=== PATIENT | female | born 1970 | race Caucasian/White ===

== ENCOUNTER → 2017-03-02 | Outpatient (CLI) | payer OTHER ==
--- NOTE | ~2017-03-02 | CT4 ---
[facility] A Service of [facility] & [facility] RADIOLOGY TEXT RESULTS PATIENT: BENJAMIN GONG LOCATION: [facility]AT : 66 UNIT #: [id number] AGE: [address]: Christiana Finley APRN SEX: F ORDER DR: [id number] [facility] [address] [place], [place] [address] [id number] O MR#: [id number] Acc #: [id number] NAME: BENJAMIN GONG : 1970 SEX: F STUDY DATE/TIME: 03/02/2017 14:57 UNIT: [facility] ROOM: STUDY DESCRIPTION: CT Abd and Pelv Wo Cont Attending Physician: Christiana Finley A.P.R.N. Referring Physician: Christiana Finley A.P.R.N. Ordering Physician: Christiana Finley A.P.R.N. Primary Care Physician: Christiana Finley A.P.R.N. MEDICAL IMAGING REPORT This report is preliminary unless electronic signature is present EXAM CT of the abdomen and pelvis without contrast. INDICATION Abdominal pain and left-sided back pain today. Hematuria for [address] of the abdomen and pelvis was performed without contrast. Coronal and sagittal reformatted images are obtained. This CT exam was performed with one or more of the following radiation dose reduction techniques: automatic exposure control, adjustment of mA and/or kV according to patient size, and iterative reconstruction. COMPARISON Compared with 04/16/2015. FINDINGS The lung bases are clear. The liver is unremarkable. The gallbladder is unremarkable. The spleen is unremarkable. Punctate nonobstructing stones in the lower pole of the left kidney. Punctate nonobstructing stone in the lower pole of the right kidney. Small cyst in the right kidney. No hydronephrosis. No inflammatory stranding around the kidneys. The adrenal glands are unremarkable. Pancreas is unremarkable. PELVIS: The urinary bladder is unremarkable. Colon is unremarkable. Normal appendix. The bone windows are unremarkable. IMPRESSION There are punctate nonobstructing stones in both kidneys. No evidence for hydronephrosis or obstruction. [facility]. [facility] A Service of [facility] & [facility] RADIOLOGY TEXT RESULTS PATIENT: BENJAMIN GONG [facility] #: [id number] : 66 UNIT #: [id number] AGE: [address]: Christiana Finley APRN SEX: F ORDER DR: Dictated by... Micah Bonilla M.D. THIS IS AN ELECTRONICALLY VERIFIED REPORT Micah Bonilla M.D. at 03/03/2017 7:37 AM FELA/deni TD: 03/02/2017 22:45 JOB #: [id number] MEDICAL IMAGING REPORT Page 1 of 1 COPY
== END | disposition home or self-care (01) ==
LOC: CCAT 14:31
DX: R31.9 Hematuria, unspecified (principal); N20.0 Calculus of kidney
CPT/HCPCS: 74176